=== PATIENT | female | born 1990 | race Hispanic/Latino ===

== ENCOUNTER 2019-12-04 23:26 | Emergency (ER) | payer SELFPAY ==
[2019-12-04] MEDS ORDERED: LORazepam 2 MG/ML VIAL IM PRN (23:45)
[2019-12-04] MEDS ORDERED: HALOPERIDOL LACTATE 5 MG/1 ML INJ IM PRN (23:45)
--- NOTE | 2019-12-04 23:45 | Emergency Department Report ---
ED General Adult HPI - General Chief complaint: Psych Stated complaint: SUICIDAL IDEATION/SUBSTANCE ABUSE Time Seen by Provider: 12/04/19 23:35 Source: EMS ( EMS documentation not available at time of chart dictation ), RN notes reviewed Mode of arrival: Stretcher Limitations: Altered Mental Status, Physical Limitation - History of Present Illness Initial comments: During the entire history and physical examination, I am laboratory engineer and escorted by strip cutter Ramona Camargo The patient is a 29-year-old female who is not known to myself previously. The details of her past medical history are not known. The patient is currently sedated at this time and cannot provide collateral information or history of present illness. History of present illness obtained from nurse. As per verbal report from nurse, who received verbal report from EMS, patient was agitated, belligerent in the field, and may have overdosed on ecstasy and "some kind of white powder." It is not known what she ingested, and what time she ingested it. At some point in time, EMS/911 was contacted, and the patient was placed in the ambulance, and required sedation with standard EMS prehospital agitation protocol cocktail. In the emergency room, the patient is sleepy, is occasionally moving 4 extremities, at this point time, is not answering questions, and cannot describe exacerbating, relieving factors, qualitative nature of her symptoms, and she cannot answer open ended her close ended questions. At the moment, she is not accompanied by friends, family or relatives to provide additional information or collateral information -: This evening Radiation: other Quality: other Consistency: other Improves with: other Worsens with: other Associated Symptoms: other - Related Data Home Medications Medication Instructions Recorded Confirmed Last Taken Escitalopram Oxalate [Lexapro] 20 mg PO DAILY 12/05/19 12/05/19 12/03/19 busPIRone [Buspar] 10 mg PO TID 12/05/19 12/05/19 12/04/19 Allergies Allergy/AdvReac Type Severity Reaction Status Date / Time azithromycin Allergy Hives Verified 12/05/19 08:08 cefaclor [From Ceclor] Allergy Hives Verified 12/05/19 08:08 Penicillins Allergy Hives Verified 12/05/19 08:08 Sulfa (Sulfonamide Allergy Hives Verified 12/05/19 08:08 Antibiotics) ED Review of Systems ROS: Stated complaint: SUICIDAL IDEATION/SUBSTANCE ABUSE Other details as noted in HPI Comment: Unobtainable due to pts medical conditions ED Past Medical Hx - Medications Home Medications: Home Medications Medication Instructions Recorded Confirmed Last Taken Type Escitalopram Oxalate [Lexapro] 20 mg PO DAILY 12/05/19 12/05/19 12/03/19 History busPIRone [Buspar] 10 mg PO TID 12/05/19 12/05/19 12/04/19 History ED Physical Exam - General Limitations: Altered Mental Status, Physical Limitation General appearance: in no apparent distress, lethargic - Head Head exam: Present: atraumatic, normocephalic - Eye Eye exam: Present: normal appearance, PERRL - ENT ENT exam: Present: normal exam, mucous membranes moist, normal external ear exam - Neck Neck exam: Present: normal inspection. Absent: tenderness, meningismus - Respiratory Respiratory exam: Present: normal lung sounds bilaterally. Absent: respiratory distress - Cardiovascular Cardiovascular Exam: Present: regular rate, normal rhythm, normal heart sounds. Absent: bradycardia, tachycardia, irregular rhythm, systolic murmur, diastolic murmur, rubs, gallop - GI/Abdominal GI/Abdominal exam: Present: soft, normal bowel sounds. Absent: distended, tenderness, guarding, rebound, rigid, pulsatile mass - Extremities Exam Extremities exam: Present: normal inspection, other (2+ pulses noted in the bilateral upper and lower extremities. There is no palpable cord. negative Homans sign. Muscular compartments are soft. The pelvis is stable.). Absent: pedal edema, calf tenderness - Back Exam Back exam: Present: normal inspection - Neurological Exam Neurological exam: Present: altered, other (Patient sleepy, sedated, unable to perform detailed neurologic examination, secondary to sedation and presumed intoxication) - Psychiatric Psychiatric exam: Present: other (Patient is nonverbal at this time) - Skin Skin exam: Present: warm, dry, intact, normal color. Absent: rash ED Course Vital Signs 12/04/19 12/05/19 12/05/19 23:49 00:12 00:30 Temperature 97.8 F Pulse Rate 86 Respiratory 16 Rate Blood Pressure 96/58 96/63 93/58 Blood Pressure [Left] O2 Sat by Pulse 100 98 97 Oximetry 12/05/19 12/05/19 12/05/19 00:45 01:00 01:30 Temperature Pulse Rate 79 Respiratory 11 L Rate Blood Pressure 91/55 94/58 91/56 Blood Pressure [Left] O2 Sat by Pulse 97 98 98 Oximetry 12/05/19 12/05/19 12/05/19 01:45 02:00 02:15 Temperature Pulse Rate 82 83 91 H Respiratory 16 16 16 Rate Blood Pressure 91/56 93/53 91/56 Blood Pressure [Left] O2 Sat by Pulse 97 97 97 Oximetry 12/05/19 12/05/19 12/05/19 02:30 02:45 03:00 Temperature Pulse Rate 90 87 95 H Respiratory 19 15 17 Rate Blood Pressure 98/60 98/60 94/53 Blood Pressure [Left] O2 Sat by Pulse 97 96 96 Oximetry 12/05/19 12/05/19 12/05/19 03:15 03:30 03:45 Temperature Pulse Rate 97 H 100 H 103 H Respiratory 16 18 17 Rate Blood Pressure 94/53 96/53 96/53 Blood Pressure [Left] O2 Sat by Pulse 97 96 96 Oximetry 12/05/19 12/05/19 12/05/19 04:00 04:30 05:01 Temperature Pulse Rate 103 H 97 H 119 H Respiratory 18 14 15 Rate Blood Pressure 97/49 95/58 97/58 Blood Pressure [Left] O2 Sat by Pulse 96 97 97 Oximetry 12/05/19 12/05/19 12/05/19 05:15 05:30 05:45 Temperature Pulse Rate 105 H 110 H 99 H Respiratory 21 21 14 Rate Blood Pressure 97/58 91/47 91/47 Blood Pressure [Left] O2 Sat by Pulse 96 98 99 Oximetry 12/05/19 12/05/19 12/05/19 06:00 06:30 06:45 Temperature Pulse Rate 103 H 134 H 107 H Respiratory 20 18 17 Rate Blood Pressure 96/68 102/60 102/60 Blood Pressure [Left] O2 Sat by Pulse 99 96 96 Oximetry 12/05/19 12/05/19 12/05/19 07:00 07:15 07:30 Temperature Pulse Rate 121 H 105 H 106 H Respiratory 21 17 17 Rate Blood Pressure 96/57 96/57 99/62 Blood Pressure [Left] O2 Sat by Pulse 96 95 98 Oximetry 12/05/19 12/05/19 12/05/19 07:35 07:45 07:47 Temperature 98.0 F Pulse Rate 110 H 113 H Respiratory 18 21 18 Rate Blood Pressure 99/62 Blood Pressure 96/57 [Left] O2 Sat by Pulse 98 97 98 Oximetry 12/05/19 12/05/19 12/05/19 08:00 08:15 08:30 Temperature Pulse Rate 114 H 110 H 101 H Respiratory 20 23 18 Rate Blood Pressure 103/53 103/53 101/57 Blood Pressure [Left] O2 Sat by Pulse 98 96 97 Oximetry 12/05/19 12/05/19 12/05/19 08:45 09:00 09:15 Temperature Pulse Rate 96 H 102 H 108 H Respiratory 19 19 22 Rate Blood Pressure 101/57 113/56 113/56 Blood Pressure [Left] O2 Sat by Pulse 97 97 96 Oximetry 12/05/19 12/05/19 12/05/19 09:30 09:45 10:00 Temperature Pulse Rate 103 H 107 H 106 H Respiratory 25 H 20 22 Rate Blood Pressure 98/57 98/57 98/59 Blood Pressure [Left] O2 Sat by Pulse 97 98 99 Oximetry 12/05/19 12/05/19 12/05/19 10:15 10:30 10:45 Temperature Pulse Rate 92 H 106 H 98 H Respiratory 19 18 19 Rate Blood Pressure 98/59 92/54 92/54 Blood Pressure [Left] O2 Sat by Pulse 96 98 96 Oximetry 12/05/19 12/05/19 12/05/19 11:00 11:15 15:00 Temperature 98 F Pulse Rate 96 H 102 H 99 H Respiratory 26 H 18 18 Rate Blood Pressure 94/50 94/50 Blood Pressure 96/60 [Left] O2 Sat by Pulse 98 97 99 Oximetry - Reevaluation(s) Reevaluation #1: 12/04/19 23:49 Differential diagnosis, including but not limited to: Intoxication, sedation, electrolyte derangement, overdose, intention unspecified Assessment and plan: 29-year-old female status post report of overdose, agitated behavior in the field, requiring chemical de-escalation. Place patient on hold, roving sizer, obtain basic laboratory studies, CBC, metabolic panel, serum toxicology study, EKG, noncontrast CT scan of the brain, and reassess. Patient will likely need to be held in the emergency room overnight pending clinical sobriety, psychiatric evaluation, and reassessment. Reevaluation #2: 12/05/19 00:59 Patient sleeping comfortably in stretcher, and in no acute distress. There is n o history of blunt trauma. CT scan of the brain negative for acute disease. Laboratory studies unr emarkable for emergent condition, with the exception of elevated blood alcohol level. At this point in time, the patient does not appear to have an immediate medical contraindication to psychiatric evaluation, consultation, and placement if necessary. However, I suspect that when the patient alfonso up, if she is not suicidal and exhibits decision-making capacity, it would be reasonable to discharge with instructions to follow-up as an outpatient, and abstain from recreational drug and alcohol consumption. Reevaluation #3: 12/05/19 16:55 Patient reassessed. She is clinically sober. She endorses no physical pain at this time. She denies medical complaints. She is alert and oriented x3 and clinically sober. As expected, she does not meet criteria for 1013 or involuntary hold. Psychiatric team has evaluated the patient and has also made similar recommendations. Patient is counseled to abstain from recreational drug consumption ED Medical Decision Making - Lab Data Result diagrams: 12/04/19 23:52 12/05/19 10:07 Vital Signs 12/04/19 12/05/19 23:49 00:12 Temperature 97.8 F Pulse Rate 86 Respiratory 16 Rate Blood Pressure 96/58 96/63 O2 Sat by Pulse 100 98 Oximetry Lab Results 12/04/19 Range/Units 23:52 Hgb 13.5 (10.1-14.3) gm/dl Hct 38.7 (30.3-42.9) % Plt Count 254 (140-440) K/mm3 - EKG Data -: EKG Interpreted by Me EKG shows normal: sinus rhythm Rate: normal - EKG Data When compared to previous EKG there are: previous EKG unavailable 12/05/19 00:02 The EKG is not a STEMI. Sinus rhythm, 87 bpm, normal axis, QTC 440 ms, motion artifact, unremarkable ST morphology, there is a low voltage in the high lateral leads, MA interval within normal limits, the EKG is not a STEMI - Radiology Data Radiology results: pending, report reviewed, image reviewed CT scan of the brain is negative for acute disease. Critical care attestation.: If time is entered above; I have spent that time in minutes in the direct care of this critically ill patient, excluding procedure time. ED Disposition Clinical Impression: Alcohol intoxication, History of drug overdose, General medical exam Disposition: DC-01 TO HOME OR SELFCARE Is pt being admited?: No Does the pt Need Aspirin: No Condition: Stable Additional Instructions: Please refrain from the consumption of alcohol and recreational drugs. Consumption of the aforementioned may cause addiction, disability, paralysis, loss of quality of life or . Do not drive or operate motor vehicles until cleared to do so by her primary medical doctor. Follow-up with an outpatient medical doctor within the next 5 to 7 days for repeat checkup and evaluation. Drink plenty of fluids, and make certain to eat at least 4-6 times per day. Please return to the emergency room right away with new, worsened or different symptoms, or symptoms not present on the initial emergency room evaluation. Referrals: CASSIUS ESPITIA MD [Staff Physician] - as needed [facility] [Provider Group] - as needed
[2019-12-05 00:22] LABS: Hematocrit 38.7 % (30.3-42.9); Hemoglobin 13.5 gm/dl (10.1-14.3)
[2019-12-05 00:44] LABS: BUN/Creatinine Ratio 9; Blood Urea Nitrogen 7 mg/dL (7-17); Calcium 8.9 mg/dL (8.4-10.2); Hemolysis Index 17
--- NOTE | 2019-12-05 00:53 | Cat Scan Report ---
CT HEAD WITHOUT CONTRAST INDICATION: ams overdose TECHNIQUE: All CT scans at this location are performed using CT dose reduction for ALARA by means of automated exposure control. COMPARISON: None available. FINDINGS: BRAIN: No hemorrhage or mass effect are seen. No evidence of acute infarction is noted. ORBITS: Normal as visualized. SOFT TISSUES OF HEAD: Normal. CALVARIUM: Normal. VISUALIZED PARANASAL SINUSES AND MASTOID AIR CELLS: Clear. ADDITIONAL FINDINGS: None. IMPRESSION: No acute intracranial abnormality. Signer Name: Chirag Latham MD Signed: 12/05/2019 12:49 AM Workstation Name: [id number]
[2019-12-05 08:09] LABS: Bacteria,Urine 2+ /HPF (Negative); Bilirubin,Urine NEG (Negative); Blood,Urine MOD (Negative); Color,Urine Yellow (Yellow); Mucus,Urine FEW /HPF; Protein,Urine <15 mg/dL mg/dL (Negative); Urobilinogen,Urine < 2.0 mg/dL (<2.0)
[2019-12-05 08:15] LABS: Amphetamine Screen,Urine PRESUMPTIVE NEGATIVE; Cannabinoid Screen,Urine PRESUMPTIVE NEGATIVE; Methadone Screen,Urine PRESUMPTIVE NEGATIVE; Opiate Screen,Urine PRESUMPTIVE NEGATIVE
[2019-12-05 08:40] LABS: Benzodiazepines Screen,Urine PRESUMPTIVE POSITIVE; Cocaine Screen,Urine PRESUMPTIVE POSITIVE
[2019-12-05] MEDS ORDERED: SODIUM CHLORIDE 0.9% 1000 ML 1,000 ML ONE (09:31)
[2019-12-05] MEDS ORDERED: SODIUM CHLORIDE 0.9% 1000 ML 1,000 ML IV ONE (09:34)
[2019-12-05] MEDS ORDERED: THIAMINE 100 MG, FOLIC ACID 1 MG, MULTIPLE VITAMIN INJ, ADULT 10 ML in SODIUM CHLORIDE ... IV ONE (10:30)
[2019-12-05 10:54] LABS: BUN/Creatinine Ratio 14; Blood Urea Nitrogen 11 mg/dL (7-17); Calcium 7.9 mg/dL (8.4-10.2); Hemolysis Index 7
[2019-12-05 10:56] LABS: Creatine Kinase MB 8.5 ng/mL (0.0-4.0)
[2019-12-05 17:00] VITALS: BP 105/62
== END 2019-12-05 17:14 | disposition home or self-care (01) ==
LOC: ED 23:26
DX: F10.129 Alcohol abuse with intoxication, unspecified (principal); R41.82 Altered mental status, unspecified; Z00.00 Encounter for general adult medical examination without abnormal findings; Z79.899 Other long term (current) drug therapy; Z88.0 Allergy status to penicillin; Z88.2 Allergy status to sulfonamides; Z88.8 Allergy status to other drugs, medicaments and biological substances; T65.91XA Toxic effect of unspecified substance, accidental (unintentional), initial encounter
CPT/HCPCS: 36415; 70450; 80048; 80307; 81001; 82550; 82553; 82962; 83735; 84702; 85014; 85018; 85049; 96361; 96365; 96366; 99285; J3411; J7030; 80320; G0480